=== PATIENT | male | born 1960 | race Caucasian/White ===

== ENCOUNTER 2021-08-21 14:28 | Outpatient (CLI) | payer BC ==
[2021-08-21 15:34] LABS: #Basophils 0.1 10x3/uL (0.0-0.2); #Eosinphils 0.2 10x3/uL (0.0-0.5); #Monocytes 1.3 10x3/uL (0.0-1.1); #Neutrophils 5.7 10x3/uL (1.5-8.4); %Basophils 0.7 % (0.0-2.0); %Eosinophils 2.3 % (0.0-6.0); %Lymphocytes 22.6 % (18.0-47.0); %Monocytes 13.8 % (0.0-10.0); %Neutrophils 60.2 % (40.0-75.0); Hemoglobin 15.4 g/dL (13.5-17.5); Mean Corpuscular HGB CONC 33.2 g/dL (32.0-36.0); Mean Corpuscular Hemoglobin 31.6 pg (27.0-33.0); Mean Corpuscular Volume 95.3 fl (81.2-95.1); Mean Platelet Volume 10.1 fl (7.4-10.4); Platelet Count 253 10x3/uL (150-450); RBC Distribution Width 14.6 % (11.5-14.5); Red Blood Cell (RBC) Count 4.87 10x6/uL (4.32-5.72); White Blood Cell (WBC) Count 9.4 10x3/uL (3.5-10.5)
[2021-08-22 08:46] LABS: SARS-CoV-2 PCR by NAA Not Detected (NotDetected)
== END 2021-08-21 14:29 | disposition home or self-care (01) ==
LOC: LABBT 14:28
PROVIDERS: ATTEND Orthopaedic Surgery Hand Surgery
DX: Z01.818 Encounter for other preprocedural examination (principal); M72.0 Palmar fascial fibromatosis [Dupuytren]; Z20.822 Contact with and (suspected) exposure to COVID-19
CPT/HCPCS: 85025; 93005; 93010; U0003; U0005

== ENCOUNTER 2021-08-25 12:07 | Day surgery (SDC) | payer BC ==
[2021-08-22 11:39] VITALS: BMI 25.9
[2021-08-25] MEDS ORDERED: Propofol 500 MG/50 ML VIAL ONE (13:12)
[2021-08-25] MEDS ORDERED: Fentanyl 100 MCG/2 ML VIAL ONE (13:12)
[2021-08-25] MEDS ORDERED: Collagenase Clostridium Hist. 0.9 MG VIAL FS SCH (13:45)
[2021-08-25] MEDS ORDERED: Ketorolac Tromethamine 30 MG/ML VIAL ONE (14:39)
== END 2021-08-25 15:16 | disposition home or self-care (01) ==
LOC: SDC 12:07
PROVIDERS: ATTEND Orthopaedic Surgery Hand Surgery
PROC: 3E013TZ Introduction of Destructive Agent into Subcutaneous Tissue, Percutaneous Approach (ICD-10-PCS; principal; 2021-08-25)
DX: M72.0 Palmar fascial fibromatosis [Dupuytren] (principal); E11.9 Type 2 diabetes mellitus without complications; E78.5 Hyperlipidemia, unspecified; F17.210 Nicotine dependence, cigarettes, uncomplicated; I10 Essential (primary) hypertension; I25.10 Atherosclerotic heart disease of native coronary artery without angina pectoris; I25.2 Old myocardial infarction; Z79.82 Long term (current) use of aspirin; Z79.84 Long term (current) use of oral hypoglycemic drugs; Z79.899 Other long term (current) drug therapy; Z95.5 Presence of coronary angioplasty implant and graft
CPT/HCPCS: J0690; J0775; J1885; J2704; J3010

== ENCOUNTER 2021-08-27 14:59 | Outpatient (CLI) | payer BC ==
[2021-08-28 07:35] LABS: SARS-CoV-2 PCR by NAA Not Detected (NotDetected)
== END 2021-08-27 15:00 | disposition home or self-care (01) ==
LOC: LABBT 14:59
PROVIDERS: ATTEND Orthopaedic Surgery Hand Surgery
DX: Z01.812 Encounter for preprocedural laboratory examination (principal); Z20.822 Contact with and (suspected) exposure to COVID-19
CPT/HCPCS: U0003; U0005

== ENCOUNTER 2021-08-29 10:13 | Day surgery (SDC) | payer BC ==
[2021-08-28 10:15] VITALS: BMI 25.7
[2021-08-29] MEDS ORDERED: Thrombin 5000 UNITS/5 ML VIAL ONE (13:31)
[2021-08-29] MEDS ORDERED: Bupivacaine PF 0.5% 30 ML VIAL ONE (13:31)
[2021-08-29] MEDS ORDERED: Bacitracin Zinc Ointment 30 gm TUBE ONE (13:31)
[2021-08-29] MEDS ORDERED: Neomycin-Polymyxin 1 ML AMP ONE (13:31)
[2021-08-29] MEDS ORDERED: Fentanyl 100 MCG/2 ML VIAL ONE (14:29)
[2021-08-29] MEDS ORDERED: Mineral Oil Sterile 10 ML VIAL ONE (14:37)
[2021-08-29] MEDS ORDERED: Ketorolac Tromethamine 30 MG/ML VIAL ONE (14:47)
[2021-08-29] MEDS ORDERED: Lidocaine 1% PF 5 ML VIAL ONE (14:47)
[2021-08-29] MEDS ORDERED: PROPOFOL 200 MG/20 ML VIAL ONE (14:47)
[2021-08-29] MEDS ORDERED: Ondansetron PF 4 MG/2 ML Vial ONE (14:47)
[2021-08-29] MEDS ORDERED: Dexamethasone 20 MG/5 ML VIAL ONE (14:47)
== END 2021-08-29 18:09 | disposition home or self-care (01) ==
LOC: SDC 10:13
PROVIDERS: ATTEND Orthopaedic Surgery Hand Surgery
PROC: 0HRFX73 Replacement of Right Hand Skin with Autologous Tissue Substitute, Full Thickness, External Approach (ICD-10-PCS; principal; 2021-08-29)
DX: S61.206A Unspecified open wound of right little finger without damage to nail, initial encounter (principal); M72.0 Palmar fascial fibromatosis [Dupuytren]; I10 Essential (primary) hypertension; I25.10 Atherosclerotic heart disease of native coronary artery without angina pectoris; E11.51 Type 2 diabetes mellitus with diabetic peripheral angiopathy without gangrene; I25.2 Old myocardial infarction; G47.00 Insomnia, unspecified; E78.5 Hyperlipidemia, unspecified; F17.210 Nicotine dependence, cigarettes, uncomplicated; Z95.5 Presence of coronary angioplasty implant and graft; Z98.890 Other specified postprocedural states; Z95.820 Peripheral vascular angioplasty status with implants and grafts; Z79.84 Long term (current) use of oral hypoglycemic drugs; Z79.82 Long term (current) use of aspirin; Z79.899 Other long term (current) drug therapy; X58.XXXA Exposure to other specified factors, initial encounter
CPT/HCPCS: J0690; J1100; J1885; J2405; J2704; J3010; S0020

== ENCOUNTER 2022-07-03 12:32 | Outpatient (CLI) | payer BC ==
[~2022-07-03 12:32] MED LIST: Iopamidol 370 76% 100 ML VIAL ONE
== END 2022-07-03 12:33 | disposition home or self-care (01) ==
LOC: CT 12:32
PROVIDERS: ATTEND Physician Assistant Medical
DX: K52.9 Noninfective gastroenteritis and colitis, unspecified (principal)
CPT/HCPCS: 72193; 74170; 82565; Q9967